=== PATIENT | male | born 1980 | race Asian ===

== ENCOUNTER 2022-01-22 09:00 | Emergency (ER) | payer OTHER, SELFPAY ==
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
[2022-01-22 09:07] VITALS: BP 124/87; PULSE 85; RESP 14; TEMP 36.7; O2SAT 98
[2022-01-22 09:09] VITALS: BP 124/87; BP 138/75; PULSE 85; PULSE 88; RESP 16; TEMP 36.7; O2SAT 98; O2SAT 99
[2022-01-22] MEDS: 0.9 % Sodium Chloride 1,000 ML 999 ML IV (09:44)
[2022-01-22 09:48] LABS: MANUAL DIFF FLAG NO
[2022-01-22 09:49] LABS: Basophils Percent Auto 0.8 % (0-2); Eosinophils Absolute Auto 0.2 X10*3/uL (0.0-0.4); Eosinophils Percent Auto 4.8 % (0-4); Hematocrit 38.4 % (42.0-52.0); Hemoglobin 13.3 g/dl (14.0-18.0); Imm Gran Abs Auto 0.02 X10*3/uL (0.00-0.03); Imm Gran Pct Auto 0.5 % (0.0-0.4); Lymphocytes Absolute Auto 1.6 X10*3/uL (1.2-4.9); Lymphocytes Percent Auto 42.9 % (20-40); Mean Corpuscular HGB Conc 34.6 g/dl (31.0-36.0); Mean Corpuscular Hemoglobin 36.1 pg (27.0-33.0); Mean Corpuscular Volume 104.3 fL (80.0-98.0); Mean Platelet Volume 9.4 fL (9.4-12.4); Monocytes Absolute Auto 0.3 X10*3/uL (0.1-1.2); Monocytes Percent Auto 7.8 % (2-11); Neutrophils Absolute Auto 1.6 x10*3/uL (2.0-8.3); Neutrophils Percent Auto 43.2 % (45-73); Platelet Count 174 X10*3/uL (160-400); Red Blood Count 3.68 X10*6/uL (4.60-5.80); Red Cell Distribution Width 12.2 % (11.0-16.0); White Blood Count 3.7 X10*3/uL (4.8-10.8)
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
[2022-01-22 10:06] LABS: Alanine Aminotransferase 13 U/L (0-40); Albumin Level 4.1 g/dL (3.5-5.0); Alkaline Phosphatase 37 U/L (39-117); Anion Gap 13 (12-20); Aspartate Amino Transferase 22 U/L (5-37); Bilirubin Direct 0.2 mg/dL (0.0-0.5); Bilirubin Total 0.4 mg/dL (0.0-1.0); Blood Urea Nitrogen 14 mg/dL (9-16); Calcium 8.9 mg/dL (8.4-10.2); Carbon Dioxide 24 mmol/L (22-29); Chloride 108 mmol/L (96-108); Creatinine Clr Calc Pharmacy 83.3; Estimated Glomerular Filt Rate > 60; Glucose Random 97 mg/dL (60-115); Lipase 28 U/L (8-78); Potassium 4.1 mmol/L (3.3-5.1); Sodium 141 mmol/L (135-145); Total Protein 6.6 g/dL (6.5-8.0)
[2022-01-22] MEDS: iohexoL 350 MG/ML 100 ML INFUS..BTL 85 ML IV (10:56)
[2022-01-22 12:08] VITALS: BP 124/79; PULSE 77; RESP 17; TEMP 36.9; O2SAT 99
== END 2022-01-22 12:11 | disposition home or self-care (01) ==
PROVIDERS: Physician Assistant; Emergency Provider Emergency Medicine
DX: R07.89 Other chest pain (principal); M54.50 Low back pain, unspecified
CPT/HCPCS: 36415; 70450; 71260; 72125; 74177; 80048; 80076; 83690; 83735; 85025; 96360; 99284; Q9967

== ENCOUNTER 2022-02-07 15:13 | Emergency (ER) | payer OTHER, SELFPAY ==
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
[2022-02-07 16:12] VITALS: BP 119/84; PULSE 69; RESP 16; TEMP 37; O2SAT 99
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
== END 2022-02-07 20:14 | disposition home or self-care (01) ==
PROVIDERS: Emergency Provider Emergency Medicine; PCP Internal Medicine
DX: M54.16 Radiculopathy, lumbar region (principal)
CPT/HCPCS: 72100; 99283

== ENCOUNTER 2025-03-13 21:49 | Inpatient (IN) | payer SELFPAY ==
--- NOTE | 2025-03-13 | ECG_ITS ---
Test Reason : TACHY Blood Pressure : */* mmHG Vent. Rate : 104 BPM Atrial Rate : 104 BPM P-R Int : 142 ms QRS Dur : 78 ms QT Int : 306 ms P-R-T Axes : 53 18 25 degrees QTcB Int : 402 ms Sinus tachycardia Otherwise normal ECG No previous ECGs available Referred By: Generic ED Physician Electronically Signed By: Jason Blackburn
--- NOTE | ~2025-03-13 | XR_ITS ---
CLINICAL HISTORY: fever 2 view chest x-ray Comparison: None Findings: Right lower lobe infiltrate. Normal size heart. No acute fracture. IMPRESSION: Right lower lobe infiltrate. This document has been electronically signed by: Luis Alberto Garcia MD, PHD on 03/14/2025 03:13:38
[2025-03-13 21:51] VITALS: BP 128/78; PULSE 118; O2SAT 98
[2025-03-13 22:02] VITALS: BP 110/71; PULSE 110; RESP 18; TEMP 39.4; O2SAT 95; BMI 20.4
[2025-03-13 22:51] LABS: Hemoglobin 12.4 g/dl (14.0-18.0); PLT CLUMP 1
[2025-03-13 22:53] LABS: Mean Corpuscular HGB Conc 36.5 g/dl (31.0-36.0); Mean Corpuscular Hemoglobin 36.5 pg (27.0-33.0); Mean Platelet Volume 11.8 fL (9.4-12.4); Red Cell Distribution Width 13.4 % (11.0-16.0)
[2025-03-13 22:59] LABS: COVID-19 Test Negative (Negative); IDNOW Serial# 55D5AD1C
[2025-03-13 23:01] LABS: IDNOW Serial# 6674DD1D; Influenza A Negative (Negative); Influenza B2 Negative (Negative)
[2025-03-13 23:03] LABS: Platelet Count 97 X10*3/uL (160-400); White Blood Count 3.8 X10*3/uL (4.8-10.8)
[2025-03-13 23:06] LABS: Alanine Aminotransferase 436 U/L (0-40); Albumin Level 3.6 g/dL (3.5-5.0); Alkaline Phosphatase 101 U/L (39-117); Anion Gap 13 (12-20); Aspartate Amino Transferase 235 U/L (5-37); Bilirubin Total 0.9 mg/dL (0.0-1.0); Blood Urea Nitrogen 15 mg/dL (9-16); Calcium 8.6 mg/dL (8.4-10.2); Carbon Dioxide 24 mmol/L (22-29); Chloride 96 mmol/L (96-108); Creatinine Clr Calc Pharmacy 58.9; Estimated Glomerular Filt Rate > 60; Ethanol < 10 mg/dL; Glucose Random 116 mg/dL (60-115); Magnesium 2.2 mg/dL (1.6-2.6); Potassium 3.9 mmol/L (3.3-5.1); Sodium 129 mmol/L (135-145); Total Protein 6.9 g/dL (6.5-8.0)
--- NOTE | 2025-03-13 23:14 | ED.GENADULT ---
HPI - General Adult General Chief complaint: General Medical Stated complaint: fell, headaches dizzy, chills, back pain Time Seen by Provider: 03/13/25 23:14 History of Present Illness ED Provider: Penelope HERNANDEZ narrative: The patient is a 44-year-old male. He says that he normally drinks 3 beers per day. He stopped drinking 1 week ago. His last drink was last Friday. Five days ago he felt quite weak as he was going [place] stairs [place]. He fell because he felt weak. He was caught by some people who were behind him and he did not get injured. Couple of days later he started to feel feverish. He finally came to the emergency department today. His fiancee encouraged him to come. He has been feeling very tired. He has been eating poorly. He has been feeling unable to eat. He has been having some right lower back pain. Today he felt very weak trying to get up from a chair and at that point his fiancee convinced him to come to the emergency room. He thinks he has had a fever for about 3 or 4 days. He has a bit of a headache. He has some right-sided neck pain. He has not had any significant cough. No significant abdominal pain. No nausea or vomiting. Related Data Previous Rx's ?Medication ?Instructions ?Recorded acetaminophen 500 mg tablet 500 mg PO Q6H PRN pain or fever 01/22/22 (Tylenol Extra Strength) #14 tabs cyclobenzaprine 5 mg tablet 5 mg PO Q8H PRN pain (scale score 01/22/22 7-10) 5 days #14 tabs lidocaine 5 % topical patch 1 patch topical DAILY PRN pain #30 01/22/22 (Lidoderm) ea naproxen 500 mg tablet 500 mg PO BID PRN pain 7 days #20 01/22/22 tabs cyclobenzaprine 10 mg tablet 10 mg PO TID PRN muscle spasm 7 02/07/22 days #21 tabs naproxen 500 mg tablet 500 mg PO BID PRN pain 10 days #20 02/07/22 tabs Allergies Allergy/AdvReac Type Severity Reaction Status Date / Time No Known Allergies Allergy Verified 03/13/25 22:11 Review of Systems Review of Systems: Yes all other systems are reviewed and are negative [facility] Past Medical History Medical History No known health problems Social History Social History Alcohol intake: current Alcohol intake frequency: does not drink Patient Tobacco Use Status: Never used Tobacco Smoked in Last 30 Days: Yes Use of substances other than those prescribed or required for medical reasons: No Advance Directives: No Advance Directives Information Provided: No Physical Exam ED Vital Signs: Vital Signs - 24 hr 03/13/25 22:02 03/13/25 23:16 03/13/25 23:53 Temperature 103.0 F H 103.3 F H Pulse Rate 110 H 98 98 Respiratory Rate 18 19 33 H Blood Pressure 110/71 108/72 99/64 Pulse Oximetry 95 98 95 Oxygen Delivery Method Room Air Room Air Room Air 03/14/25 00:17 03/14/25 00:56 03/14/25 02:03 Temperature 99.2 F Pulse Rate 84 81 73 Respiratory Rate 24 H 20 21 H Blood Pressure 104/64 96/57 L 96/59 L Pulse Oximetry 96 95 97 Oxygen Delivery Method Room Air Room Air Room Air BMI result Body Mass Index 20.4 Const Other: The patient is a slim man who was awake and alert. He looks mildly unwell but not acutely ill or in distress. HENMT Other: Face is symmetrical, mucous membranes moist, the posterior pharynx is normal. Eyes General: appearance normal, both eyes and all related structures Neck Other: No discrete adenopathy is appreciated. He has some tenderness in the right side of the neck but there did not seem to be any masses associated with this tenderness. Seems to be able to move his neck normally. Resp Other: No increased work of breathing. Crackles at the right base. Cardio Other: No murmur heard Rate: regular rate Rhythm: regular rhythm Heart sounds: S1 normal heart sound present and S2 normal heart sound present GI Other: The abdomen is flat, soft, nontender Skin Other: Skin is dry and unremarkable Neuro Other: The patient is awake and alert. He seems tired but has a normal mental status. Cranial nerves 2-12 are intact. He moves his extremities symmetrically and appropriately. He seems grossly neurologically intact. Extrem Other: No peripheral edema. No calf swelling or tenderness. Medications Administered Discontinued Medications Generic Name Dose Route Start Last Admin Trade Name Freq PRN Reason Stop Dose Admin Acetaminophen 975 mg 03/13/25 23:13 03/13/25 23:16 Acetaminophen 325 Mg Tablet PO 03/13/25 23:14 975 mg ONCE ONE Administration Sodium Chloride 1,000 mls @ 999 mls/hr 03/13/25 23:45 03/14/25 00:53 Ns IV 03/14/25 00:45 Infused .Q1H1M DAVID Infusion Sodium Chloride 1,000 mls @ 999 mls/hr 03/13/25 23:45 03/14/25 02:03 Ns IV 03/14/25 00:45 Infused .Q1H1M DAVID Infusion Piperacillin Sod/Tazobactam 100 mls @ 200 mls/hr 03/13/25 23:50 03/14/25 00:53 Sod 4.5 gm/ Sodium Chloride IV 03/14/25 00:19 Infused ONCE ONE Infusion Vancomycin HCl 1,250 mg/ 250 mls @ 166.667 mls/hr 03/13/25 23:50 03/14/25 02:42 Sodium Chloride IV 03/14/25 01:19 Infused ONCE ONE Infusion Sodium Chloride 1,000 mls @ 999 mls/hr 03/14/25 01:45 03/14/25 03:06 Ns IV 03/14/25 02:45 Infused .Q1H1M DAVID Infusion Medical Decision Making Medical Decision Making [facility] Narrative: The patient is a 44-year-old male who does not have a history of significant past medical illness but who is a fairly regular drinker who recently stopped drinking alcohol. He has been weak and dizzy for several days. He has a fever 103 here. On his lung exam he has crackles at the right base. His physical exam is otherwise fairly unremarkable. Surprisingly he does not have a cough. His chest x-ray shows a fairly large right lower lobe pneumonia. His total white count is slightly low at 3.8 but he is 22% bands. Additionally he has a very high CRP of almost 25. He has some transaminitis as well. Although his lactate is normal at 0.8 I think he is fairly ill. He was started on broad-spectrum antibiotics with Zosyn and vancomycin. He was given several L of IV fluids. His blood pressures were not frankly hypotensive but were somewhat soft. I think he should be hospitalized for additional care. Lab Data 03/13/25 22:34 03/13/25 22:34 Labs: Lab Results 03/13/25 03/13/25 03/13/25 Range/Units 22:34 23:43 23:53 WBC 3.8 L (4.8-10.8) X10*3/uL RBC 3.40 L (4.60-5.80) X10*6/uL Hgb 12.4 L (14.0-18.0) g/dl Hct 34.0 L (42.0-52.0) % MCV 100.0 H (80.0-98.0) fL MCH 36.5 H (27.0-33.0) pg MCHC 36.5 H (31.0-36.0) g/dl RDW 13.4 (11.0-16.0) % Plt Count 97 L D (160-400) X10*3/uL MPV 11.8 (9.4-12.4) fL Immature Gran % (Auto) Cancelled Neut % (Auto) Cancelled Lymph % (Auto) Cancelled [place] % (Auto) Cancelled Eos % (Auto) Cancelled Baso % (Auto) Cancelled Lymph # (Auto) Cancelled [place] # (Auto) Cancelled Eos # (Auto) Cancelled Baso # (Auto) Cancelled Abs Immat Gran (auto) Cancelled Absolute Neuts (auto) Cancelled Absolute Nucleated RBC 0.000 (0.0-0.012) X10*3/uL Nucleated RBC % (auto) 0.0 (0.0-0.2) /100WBC Neutrophils % (Manual) 47 (45-73) % Band Neutrophils % 22 H (3-5) % Lymphocytes % (Manual) 25 (20-40) % Monocytes % (Manual) 5 (2-11) % Metamyelocytes % 1 % Abs Neuts (Manual) 2.6 (2.0-8.3) X10*3/uL Lymphocytes # (Manual) 1.0 L (1.2-4.9) X10*3/uL Monocytes # (Manual) 0.2 (0.1-1.2) X10*3/uL Toxic Vacuolation PRESENT Dohle Bodies PRESENT Platelet Estimate DECREASED (NORMAL) Plt Morphology Comment NORMAL RBC Morphology NORMAL Sodium 129 L (135-145) mmol/L Potassium 3.9 (3.3-5.1) mmol/L Chloride 96 (96-108) mmol/L Carbon Dioxide 24 (22-29) mmol/L Anion Gap 13 (12-20) BUN 15 (9-16) mg/dL Creatinine 1.12 (0.5-1.4) mg/dL Estim Creat Clear Calc 58.9 Estimated GFR > 60 Random Glucose 116 H (60-115) mg/dL Lactic Acid 0.8 (0.5-2.0) mmol/L Calcium 8.6 (8.4-10.2) mg/dL Magnesium 2.2 (1.6-2.6) mg/dL Total Bilirubin 0.9 (0.0-1.0) mg/dL AST 235 H (5-37) U/L ALT 436 H (0-40) U/L Alkaline Phosphatase 101 (39-117) U/L C-Reactive Protein 24.96 H (< or = 0.50) mg/dL Total Protein 6.9 (6.5-8.0) g/dL Albumin 3.6 (3.5-5.0) g/dL Urine Color Yellow Urine Appearance Clear Urine pH 6.0 (5.0-9.0) Ur Specific [place] 1.010 (1.005-1.025) Urine Protein 100 (2+) H (Neg-Trace) mg/dL Urine Glucose (UA) Negative (Negative) mg/dL Urine Ketones Trace (Negative) mg/dL Urine Blood Moderate (2+) H (Negative) Urine Nitrite Negative (Negative) Ur Leukocyte Esterase Negative (Negative) Urine RBC 3-5 H (0-2) /HPF Urine WBC 0-5 (0-5) /HPF Ur Squamous Epith Cells 0-2 (0-2) /HPF Urine Bacteria None Seen (None Seen) Hyaline Casts 0-2 (0-2) /LPF Urine Opiates Screen Not Detected (Not Detect) Ur Buprenorphine Scrn Not Detected (Not Detect) ng/mL Ur Oxycodone Screen Not Detected (Not Detect) ng/mL Urine Methadone Screen Not Detected (Not Detect) ng/mL Urine Fentanyl Screen Not Detected (Not Detect) Ur Barbiturates Screen Not Detected (Not Detect) Ur Phencyclidine Scrn Not Detected (Not Detect) Ur Amphetamines Screen Not Detected (Not Detect) U Benzodiazepines Scrn Not Detected (Not Detect) Urine Cocaine Screen Not Detected (Not Detect) U Marijuana (THC) Screen Not Detected (Not Detect) Ethyl Alcohol < 10 mg/dL COVID-19 (MISTI) Negative (Negative) COVID-19 Clin Com See Note Influenza Type A (NEEL) Negative (Negative) Influenza Type B (NEEL) Negative (Negative) Influenza A & B Note See Note Critical Care Time Critical Care Time Critical Care Time: Yes Total Critical Care Time: 35 Attestation: The patient was critically ill with a high probability of imminent or life-threatening deterioration. ?I spent greater than 30 minutes of discontinuous time evaluating the patient, delivering critical care at the bedside, discussing evaluating data with consultants. ?Critical care time does not include time spent performing separately billable procedures or teaching. ?Time spent performing critical care with 35 minutes. Discharge Plan Discharge Clinical Impression: Right lower lobe pneumonia Patient Disposition: Admitted As Inpatient
[2025-03-13 23:16] VITALS: BP 108/72; PULSE 98; RESP 19; TEMP 39.6; O2SAT 98
[2025-03-13] MEDS: Acetaminophen 325 MG TABLET 975 MG PO (23:16)
[2025-03-13 23:39] LABS: C Reactive Protein 24.96 mg/dL (< or = 0.50)
[2025-03-13] MEDS: 0.9 % Sodium Chloride 1,000 ML 999 ML IV (23:45)
[2025-03-13 23:53] VITALS: BP 99/64; PULSE 98; RESP 33; O2SAT 95
[2025-03-13 23:53] LABS: Neutrophils Percent Manual 47 % (45-73)
[2025-03-13 23:54] LABS: Band Neutrophils Percent 22 % (3-5); Lymphocytes Percent Manual 25 % (20-40); Metamyelocytes Percent 1 %; Monocytes Absolute Manual 0.2 X10*3/uL (0.1-1.2); Monocytes Percent Manual 5 % (2-11); Neutrophils Absolute Manual 2.6 X10*3/uL (2.0-8.3)
[2025-03-13 23:57] LABS: Dohle Bodies PRESENT; Platelet Estimate DECREASED (NORMAL); Platelet Morphology Comment NORMAL; RBC Morphology NORMAL; Toxic Vacuolation PRESENT
[2025-03-14] VITALS (15 sets, daily range): BP systolic 96–112; BP diastolic 57–73; PULSE 68–107; RESP 12–30; TEMP 36.1–38.8; O2SAT 94–97
[2025-03-14 00:02] LABS: Appearance Urine Clear; Color Urine Yellow; Glucose Urine UA Negative (Negative); Leukocyte Esterase Urine Negative (Negative); Nitrite Urine Negative (Negative); UMIC TRIGGER UACC YES; Urine Blood Moderate (2+) (Negative); Urine Ketones Trace mg/dL (Negative); Urine Protein 100 (2+) mg/dL (Neg-Trace)
[2025-03-14 00:09] LABS: Lactic Acid 0.8 mmol/L (0.5-2.0)
[2025-03-14 00:10] LABS: Amphetamine Screen Urine Not Detected (Not Detect); Barbiturates, Urine Not Detected (Not Detect); Benzodiazepines Screen Urine Not Detected (Not Detect); Buprenorphine Scr Not Detected (Not Detect); Cannabinoid Screen Urine Not Detected (Not Detect); Cocaine Screen Urine Not Detected (Not Detect); Fentanyl, urine Not Detected (Not Detect); Methadone Screen, Urine Not Detected (Not Detect); Opiate Screen Urine Not Detected (Not Detect); Oxycodone Screen Urine Not Detected (Not Detect); Phencyclidine Screen Urine Not Detected (Not Detect)
[2025-03-14 00:12] LABS: Bacteria Urine None Seen (None Seen); Hyaline Casts Urine 0-2 /LPF (0-2); Squamous Epithelial Cell Urine 0-2 /HPF (0-2); WBC Urine 0-5 /HPF (0-5)
[2025-03-14] MEDS: Piperacillin Sodium/Tazobactam 4.5 GM in 0.9 % Sodium Chloride 100 ML IV (00:16)
[2025-03-14] MEDS: 0.9 % Sodium Chloride 1,000 ML 999 ML IV ×2 (00:17→02:03)
[2025-03-14] MEDS: vancomycin HCL 1,250 MG in 0.9 % Sodium Chloride 250 ML 166.67 MG IV (00:52)
--- NOTE | 2025-03-14 05:46 | P.HPHOSP_ITS ---
History of Present Illness Date of Service: 03/14/25 Attending physician on admission: Anibal Pappas Chief Complaint: weakness Patient is a 44-year-old male with a past medical history significant for alcohol use disorder, who presented to the ED due to feeling unwell for the past week with weakness and a headache and mild intermittent nonproductive cough. The patient reports an episode of near-syncope when walking upstairs but did not fall or lose consciousness. He has had a fever for the past 3-4 days. The patient is a poor historian. He denies any abdominal pain, chest pain, shortness of breath or urinary symptoms. Review of Systems 2 Constitutional: Constitutional: Denies chills, Reports fatigue, Reports fever(s) and Reports headache(s) Eyes: Eyes: Denies change in vision and Denies photophobia ENT: Reports headache(s), Denies nasal congestion, Denies nasal discharge and Denies sore throat Cardiovascular: Cardiovascular: Denies chest pain, Denies syncope, Denies rapid heart rate, Denies leg edema and Denies dyspnea Respiratory: Respiratory: Denies chest congestion, Reports cough, Denies dyspnea and Denies wheezing Gastrointestinal: Gastrointestinal: Denies abdominal pain, Denies diarrhea, Denies nausea and Denies vomiting Genitourinary: Genitourinary: Denies dysuria, Denies urinary frequency and Denies urinary urgency Musculoskeletal: Musculoskeletal: Denies back pain Integumentary/Breasts: Skin/Breast: Denies rash Neurologic: Denies confusion, Denies syncope and Reports headache(s) Psychiatric: Psychiatric: Denies confusion Endocrine: Endocrine: Reports fatigue Hematologic/Lymphatic: Hematologic/Lymphatic: Denies easy bleeding and Denies easy bruising Allergic/Immunologic: Allergic/Immunologic: Denies wheezing [facility] Medical History (Updated 03/14/25 @ 06:30 by Samara Vega PA-C) Alcohol use disorder No known health problems Functional capacity: independent ambulation Social History Alcohol intake: current Alcohol intake frequency: does not drink Patient Tobacco Use Status: Never used Tobacco Smoked in Last 30 Days: Yes Use of substances other than those prescribed or required for medical reasons: No Advance Directives: No Advance Directives Information Provided: No Narrative: no smoking, was drinking 3 beers/day, stopped 1 week ago. no drug use Meds Allergies Allergy/AdvReac Type Severity Reaction Status Date / Time No Known Allergies Allergy Verified 03/13/25 22:11 Active Medications: Current Medications Pharmacy Consult (Consult Rx Vancomycin Dosing) 1 each MISCELLANE DAILY PRN PRN Reason: Consult order Physical Exam 2 Vital Signs and Narrative: Vital Signs: Last Vital Signs Temp 97.0 F 03/14/25 03:18 Pulse 68 03/14/25 03:18 Resp 17 03/14/25 03:18 BP 101/62 03/14/25 03:18 Pulse Ox 97 03/14/25 03:18 O2 Del Method Room Air 03/14/25 03:18 BMI result Body Mass Index 20.4 General: AOx3, no acute distress Resp: crackles RLL, no wheezing CVS: S1, S2, RRR GI: +BS, NT, no distention Skin: Warm, dry Neuro: Cranial nerves II-XII grossly intact bilaterally. Motor grossly intact bilaterally Extremities: No LE edema Psych: Appropriate affect Const: General: No confusion Orientation/consciousness: No confusion Eyes: Direct Ophthalmoscopy: No photophobia Neuro: General: No confusion Results Labs 03/13/25 22:34 03/13/25 22:34 Labs: Laboratory Results - last 24 hr 03/13/25 03/13/25 03/13/25 22:34 23:43 23:53 MCV 100.0 H MCH 36.5 H MCHC 36.5 H RDW 13.4 Plt Count 97 L D MPV 11.8 Immature Gran % (Auto) Cancelled Neut % (Auto) Cancelled Lymph % (Auto) Cancelled [place] % (Auto) Cancelled Eos % (Auto) Cancelled Baso % (Auto) Cancelled Lymph # (Auto) Cancelled [place] # (Auto) Cancelled Eos # (Auto) Cancelled Baso # (Auto) Cancelled Abs Immat Gran (auto) Cancelled Absolute Neuts (auto) Cancelled Absolute Nucleated RBC 0.000 Nucleated RBC % (auto) 0.0 Neutrophils % (Manual) 47 Band Neutrophils % 22 H Lymphocytes % (Manual) 25 Monocytes % (Manual) 5 Metamyelocytes % 1 Abs Neuts (Manual) 2.6 Lymphocytes # (Manual) 1.0 L Monocytes # (Manual) 0.2 Toxic Vacuolation PRESENT Dohle Bodies PRESENT Platelet Estimate DECREASED Plt Morphology Comment NORMAL RBC Morphology NORMAL Anion Gap 13 Estim Creat Clear Calc 58.9 Estimated GFR > 60 Random Glucose 116 H Lactic Acid 0.8 Calcium 8.6 Magnesium 2.2 Total Bilirubin 0.9 AST 235 H ALT 436 H Alkaline Phosphatase 101 C-Reactive Protein 24.96 H Total Protein 6.9 Albumin 3.6 Urine Color Yellow Urine Appearance Clear Urine pH 6.0 Ur Specific [place] 1.010 Urine Protein 100 (2+) H Urine Glucose (UA) Negative Urine Ketones Trace Urine Blood Moderate (2+) H Urine Nitrite Negative Ur Leukocyte Esterase Negative Urine RBC 3-5 H Urine WBC 0-5 Ur Squamous Epith Cells 0-2 Urine Bacteria None Seen Hyaline Casts 0-2 Urine Opiates Screen Not Detected Ur Buprenorphine Scrn Not Detected Ur Oxycodone Screen Not Detected Urine Methadone Screen Not Detected Urine Fentanyl Screen Not Detected Ur Barbiturates Screen Not Detected Ur Phencyclidine Scrn Not Detected Ur Amphetamines Screen Not Detected U Benzodiazepines Scrn Not Detected Urine Cocaine Screen Not Detected U Marijuana (THC) Screen Not Detected Ethyl Alcohol < 10 COVID-19 (MISTI) Negative COVID-19 Clin Com See Note Influenza Type A (NEEL) Negative Influenza Type B (NEEL) Negative Influenza A & B Note See Note Assessment and Plan (1) Sepsis: Status: Acute (2) Right lower lobe pneumonia: Status: Acute (3) Anemia: Status: Acute (4) Thrombocytopenia: Status: Acute (5) Hyponatremia: Status: Acute (6) Elevated LFTs: Status: Acute (7) Alcohol use disorder: Status: Acute Plan Patient is a 44-year-old male with a past medical history significant for alcohol use disorder, who presented to the ED due to feeling unwell for the past week with weakness and a headache and mild intermittent nonproductive cough. Sepsis secondary to right lower lobe pneumonia - WBC 3.8, febrile, tachycardic and tachypneic, lactic acid normal - chest x-ray with right lower lobe infiltrate - EKG with sinus tachycardia - given 3 L IV fluids in ED, BP soft but maintaining - started on vancomycin and Zosyn in ED, switch to ceftriaxone and azithromycin for community-acquired pneumonia - monitor CBC and BMP Macrocytic anemia and thrombocytopenia -- likely secondary to alcohol use - hemoglobin 12.4, hematocrit 34.0, MCV 100.0 - platelets 97 - check B12, iron and folate - monitor CBC Acute hyponatremia, likely hypovolemic - likely secondary to poor p.o. intake due to weakness - sodium 129 - received 3 L NS in ED - monitor BMP Alcohol use disorder/elevated LFTs - AST 235, ALT 436 - no abdominal pain - elevated LFTs likely secondary to alcohol use disorder - monitor CIWA - follow-up outpatient for further evaluation of elevated LFTs Full code VTE prophylaxis: Pneumoboots due to thrombocytopenia Patient with sepsis secondary to right lower lobe pneumonia, requiring admission for at least 2 midnights stay for IV antibiotics and monitoring. Quality Stroke Does the patient have a stroke diagnosis?: No VTE Prior VTE?: No VTE Risk Level:: Medical - moderate - high VTE Device Contraindication: N/A - Device Ordered VTE Drug Contraindication: Treatment Not Indicated
[2025-03-14] MEDS: Azithromycin 500 MG in 0.9 % Sodium Chloride 250 ML 125 MG IV (08:09)
--- NOTE | 2025-03-14 08:11 | PC.NURSE ---
Pt A&O X4 VSS NAD states no pain at this time, eating bkfst.
--- NOTE | 2025-03-14 08:43 | PHA.MEDREC ---
Addendum entered by Libra Pleitez RPh 03/14/25 08:48: MED REC REVIEWED BY [facility] Original Note: Pharmacy Consult ? Medication Reconciliation Pharmacy has completed the medication reconciliation. Spoke with pt and he confirmed he is not taking any medications at this time.
[2025-03-14] MEDS: Thiamine HCL 100 MG TABLET PO (08:46)
[2025-03-14] MEDS: cefTRIAXone sodium 2 GM VIAL IVPUSH (08:46)
[2025-03-14] MEDS: 0.9 % Sodium Chloride Flush 3 ML SYRINGE IVFLUSH ×2 (08:52→20:02)
[2025-03-14 09:02] LABS: Hemoglobin 11.8 g/dl (14.0-18.0); Mean Corpuscular HGB Conc 35.8 g/dl (31.0-36.0); Mean Corpuscular Hemoglobin 36.4 pg (27.0-33.0); Mean Corpuscular Volume 101.9 fL (80.0-98.0); Mean Platelet Volume 11.6 fL (9.4-12.4); Platelet Count 103 X10*3/uL (160-400); Red Blood Count 3.24 X10*6/uL (4.60-5.80); Red Cell Distribution Width 13.5 % (11.0-16.0); White Blood Count 3.4 X10*3/uL (4.8-10.8)
[2025-03-14 09:18] LABS: Anion Gap 10 (12-20); Blood Urea Nitrogen 12 mg/dL (9-16); Calcium 7.7 mg/dL (8.4-10.2); Carbon Dioxide 22 mmol/L (22-29); Chloride 109 mmol/L (96-108); Creatinine Clr Calc Pharmacy 70.2; Estimated Glomerular Filt Rate > 60; Glucose Random 119 mg/dL (60-115); Iron 26 mcg/dL (45-160); Percent Iron Saturation 23 % (15-50); Potassium 3.2 mmol/L (3.3-5.1); Sodium 138 mmol/L (135-145); Total Iron Binding Capacity 113 mcg/dL (228-428); Unsaturated Iron Binding 87 ug/dL
[2025-03-14] MEDS: Acetaminophen 325 MG TABLET 975 MG PO ×2 (09:20→19:58)
[2025-03-14 09:27] LABS: Band Neutrophils Percent 10 % (3-5); Lymphocytes Absolute Manual 0.6 X10*3/uL (1.2-4.9); Lymphocytes Percent Manual 17 % (20-40); Metamyelocytes Percent 1 %; Myelocytes Percent 1 %; Neutrophils Absolute Manual 2.8 X10*3/uL (2.0-8.3); Neutrophils Percent Manual 71 % (45-73)
--- NOTE | 2025-03-14 09:27 | PC.NURSE ---
Pt SOB when ambulating to BR- Tylenol just administered for fever. Pt remains with stable O2 Sat. Resting at this time.
[2025-03-14 09:31] LABS: RBC Morphology NOTED
[2025-03-14 09:32] LABS: Burr Cells 1+ (0-2) /OIF; Dohle Bodies PRESENT; Macrocytosis 1+ (5-14) /OIF; Platelet Estimate DECREASED (NORMAL); Platelet Morphology Comment NORMAL
--- NOTE | 2025-03-14 09:41 | P.EN_ITS ---
Event Note Date of Service: 03/14/25 Event Note: 44-year-old male with a past medical history significant for alcohol use disorder, who presented to the ED due to feeling unwell for the past week with weakness and a headache and mild intermittent nonproductive cough. Sepsis secondary to right lower lobe pneumonia WBC 3.8, febrile, tachycardic and tachypneic, lactic acid normal chest x-ray with right lower lobe infiltrate EKG with sinus tachycardia given 3 L IV fluids in ED, BP soft but maintaining started on vancomycin and Zosyn in ED, switch to ceftriaxone and azithromycin for community-acquired pneumonia monitor CBC and BMP Hyponatremia Replete Macrocytic anemia and thrombocytopenia likely secondary to alcohol use hemoglobin 12.4, hematocrit 34.0, MCV 100.0 platelets 97 check B12, iron 26 and folate monitor CBC Acute hyponatremia, likely hypovolemic. Resolved likely secondary to poor p.o. intake due to weakness sodium 129, 138 received 3 L NS in ED monitor BMP Alcohol use disorder/elevated LFTs AST 235, ALT 436 no abdominal pain elevated LFTs likely secondary to alcohol use disorder monitor [facility] follow-up outpatient for further evaluation of elevated LFTs Full code VTE prophylaxis: Pneumoboots due to thrombocytopenia Patient with sepsis secondary to right lower lobe pneumonia, requiring admission for at least 2 midnights stay for IV antibiotics and monitoring. Time Spent With Patient Time: Total time managing care of this patient today ____ minutes.
--- NOTE | 2025-03-14 09:46 | MHC.CM.PN ---
Pt is independent, does not use home health services. His PCP is Dr. Perales, and he is working on getting health insurance. He can arrange a ride home at [place], DCP: home, self care. CM to follow for [place] needs.
[2025-03-14 09:54] LABS: Folate 10.2 ng/mL (> or = 4.0); Vitamin B12 > 2000 pg/mL (200-900)
[2025-03-14] MEDS: Potassium Chloride ER 20 MEQ TAB.ER.PRT 40 MEQ PO (10:21)
--- NOTE | 2025-03-14 14:30 | PC.NURSE ---
Pt remains A&O X4 VSS. NAD ate lunch and is visiting with family.
--- NOTE | 2025-03-14 17:33 | PC.NURSE ---
Per Pt, Lindsey Vallejo okay to receive information about pt care.
[2025-03-15 04:00] VITALS: BP 129/70; PULSE 107; RESP 18; TEMP 37.7; O2SAT 92
[2025-03-15 06:26] LABS: Hematocrit 33.3 % (42.0-52.0); Hemoglobin 11.9 g/dl (14.0-18.0); Mean Corpuscular HGB Conc 35.7 g/dl (31.0-36.0); Mean Corpuscular Hemoglobin 36.4 pg (27.0-33.0); Mean Corpuscular Volume 101.8 fL (80.0-98.0); Platelet Count 104 X10*3/uL (160-400); Red Blood Count 3.27 X10*6/uL (4.60-5.80); Red Cell Distribution Width 13.7 % (11.0-16.0); White Blood Count 3.7 X10*3/uL (4.8-10.8)
[2025-03-15 06:42] LABS: Anion Gap 13 (12-20); Blood Urea Nitrogen 9 mg/dL (9-16); Calcium 8.1 mg/dL (8.4-10.2); Carbon Dioxide 21 mmol/L (22-29); Chloride 105 mmol/L (96-108); Creatinine Clr Calc Pharmacy 82.5; Estimated Glomerular Filt Rate > 60; Glucose Random 100 mg/dL (60-115); Potassium 3.5 mmol/L (3.3-5.1); Sodium 135 mmol/L (135-145)
[2025-03-15] MEDS: Azithromycin 500 MG in 0.9 % Sodium Chloride 250 ML 125 MG IV (06:50)
[2025-03-15 06:58] VITALS: BP 112/62; PULSE 96; RESP 16; TEMP 37.3; O2SAT 93
[2025-03-15 07:34] LABS: Atypical Lymphs Percent Manual 1 % (0-6); Band Neutrophils Percent 14 % (3-5); Lymphocytes Absolute Manual 0.4 X10*3/uL (1.2-4.9); Lymphocytes Percent Manual 12 % (20-40); Monocytes Absolute Manual 0.1 X10*3/uL (0.1-1.2); Monocytes Percent Manual 4 % (2-11); Neutrophils Absolute Manual 3.1 X10*3/uL (2.0-8.3); Neutrophils Percent Manual 69 % (45-73)
[2025-03-15 07:38] LABS: RBC Morphology NOTED
[2025-03-15 07:39] LABS: Burr Cells 1+ (0-2) /OIF; Dohle Bodies PRESENT; Platelet Estimate DECREASED (NORMAL); Platelet Morphology Comment NORMAL; Tear Drop Cells 1+ (0-2) /OIF; Toxic Vacuolation PRESENT
--- NOTE | 2025-03-15 08:48 | PM.DS ---
DS: Providers Provider Date of Service: 03/15/25 Date of admission: 03/14/25 03:17 Date of discharge: 03/15/25 Primary care physician: Lupe Perales MD DS: Diagnosis Discharge Diagnosis (1) Sepsis: Status: Acute (2) Right lower lobe pneumonia: Status: Acute (3) Anemia: Status: Acute (4) Thrombocytopenia: Status: Acute (5) Hyponatremia: Status: Acute (6) Elevated LFTs: Status: Acute (7) Alcohol use disorder: Status: Acute DS: Summary Hospital Course Hospital Course: History and physical as per admitting provider. Patient is a 44-year-old male with a past medical history significant for alcohol use disorder, who presented to the ED due to feeling unwell for the past week with weakness and a headache and mild intermittent nonproductive cough. The patient reports an episode of near-syncope when walking upstairs but did not fall or lose consciousness. He has had a fever for the past 3-4 days. The patient is a poor historian. He denies any abdominal pain, chest pain, shortness of breath or urinary symptoms. 44-year-old man treated for sepsis secondary to right lower lobe pneumonia, chest x-ray showed right lower lobe infiltrate, patient treated with vancomycin and Zosyn, switch ceftriaxone and azithromycin for community-acquired pneumonia coverage. At this point patient is off oxygen on room air, doing well without shortness of breath. Plan will be to continue a total of 5 more days of antibiotics. Hyponatremia. Likely hypovolemic, poor p.o. intake . Resolved Microcytic anemia and thrombocytopenia secondary to alcohol use. Stable H&H Alcohol use disorder with transaminitis. No abdominal pain, no withdrawals during hospitalization Time Attestation Discharge Coordination Time (in mins): 42 Quality: Safe Use of Opioids Does Pt have an Active Cancer Diagnosis on the Problem List?: No Quality: Stroke Does the patient have a stroke diagnosis?: No Physical Exam Vital Signs: Vital Signs: Last Vital Signs Temp 99.1 F 03/15/25 06:58 Pulse 96 03/15/25 06:58 Resp 16 03/15/25 06:58 BP 112/62 03/15/25 06:58 Pulse Ox 93 03/15/25 06:58 O2 Del Method Room Air 03/15/25 06:58 BMI result Body Mass Index 20.4 Appearing in no acute distress head is normocephalic atraumatic eyes pupils are PERRLA sclera is anicteric mouth throat mucous membranes are intact and moist neck is supple no lymphadenopathy, no JVD noted lung sounds are clear to auscultation heart regular rate rhythm, clear S1, S2 positive bowel sounds, abdomen is soft, nontender neuro patient is alert x3, no focal deficits DS: Data Data Completed and Pending Labs on day of discharge: Laboratory Results - last 24 hr 03/14/25 03/14/25 03/15/25 08:55 08:56 05:43 WBC 3.4 L 3.7 L RBC 3.24 L 3.27 L Hgb 11.8 L 11.9 L Hct 33.0 L 33.3 L MCV 101.9 H 101.8 H MCH 36.4 H 36.4 H MCHC 35.8 35.7 RDW 13.5 13.7 Plt Count 103 L 104 L MPV 11.6 12.0 Immature Gran % (Auto) Cancelled Cancelled Neut % (Auto) Cancelled Cancelled Lymph % (Auto) Cancelled Cancelled Waller % (Auto) Cancelled Cancelled Eos % (Auto) Cancelled Cancelled Baso % (Auto) Cancelled Cancelled Lymph # (Auto) Cancelled Cancelled Waller # (Auto) Cancelled Cancelled Eos # (Auto) Cancelled Cancelled Baso # (Auto) Cancelled Cancelled Abs Immat Gran (auto) Cancelled Cancelled Absolute Neuts (auto) Cancelled Cancelled Absolute Nucleated RBC 0.000 0.000 Nucleated RBC % (auto) 0.0 0.0 Neutrophils % (Manual) 71 69 Band Neutrophils % 10 H 14 H Lymphocytes % (Manual) 17 L 12 L Atypical Lymphs % (Man) 1 Monocytes % (Manual) 4 Metamyelocytes % 1 Myelocytes % 1 Abs Neuts (Manual) 2.8 3.1 Lymphocytes # (Manual) 0.6 L 0.4 L Monocytes # (Manual) 0.1 Toxic Vacuolation PRESENT Dohle Bodies PRESENT PRESENT Platelet Estimate DECREASED DECREASED Plt Morphology Comment NORMAL NORMAL RBC Morphology NOTED NOTED Macrocytosis 1+ (5-14) Tear Drop Cells 1+ (0-2) Tornado Cells 1+ (0-2) 1+ (0-2) Sodium 138 135 Potassium 3.2 L 3.5 Chloride 109 H 105 Carbon Dioxide 22 21 L Anion Gap 10 L 13 BUN 12 9 Creatinine 0.94 0.80 Estim Creat Clear Calc 70.2 82.5 Estimated GFR > 60 > 60 Random Glucose 119 H 100 Calcium 7.7 L D 8.1 L Iron 26 L TIBC 113 L % Saturation 23 Unsat Iron Binding 87 Vitamin B12 > 2000 H Folate 10.2 Preliminary micro results at discharge 03/13/25 23:56 Blood Culture - Preliminary Blood - Venous No growth after 24 hours. 03/13/25 23:43 Blood Culture - Preliminary Blood - Venous No growth after 24 hours. Discharge Plan Discharge Anticipated Discharge Date/Time: 03/15/25 08:34 Patient Disposition: Home, Self-Care Discharge Diagnosis: Sepsis secondary to right lower lobe pneumonia Hyponatremia Alcohol use disorder Transaminitis Referrals: Lupe Perales MD [Primary Care Provider] - 1 Week Discharge Medications: New cefuroxime axetil 500 mg tablet 500 mg PO BID Qty: 10 0RF azithromycin 500 mg tablet 500 mg PO DAILY 5 Days Qty: 5 0RF Discharge Orders: Discharge Order (Routine); Ordered 03/15/25 Ordered By: Justine Mittal Diet: Advance to usual diet Activity on Discharge: As tolerated Stand Alone Forms: Patient Portal Discharge page Print Language: [place] Care Plan Goals: Complete course of antibiotics Health Concerns: Sepsis secondary to right lower lobe pneumonia Hyponatremia Alcohol use disorder Transaminitis Plan of Treatment: Follow-up with primary care provider as needed Take all medications as prescribed Assessment: See discharge summary
[2025-03-15] MEDS: cefTRIAXone sodium 2 GM VIAL IVPUSH (08:49)
[2025-03-15] MEDS: Thiamine HCL 100 MG TABLET PO (08:49)
[2025-03-15 08:59] LABS: Alanine Aminotransferase 251 U/L (0-40); Alkaline Phosphatase 85 U/L (39-117); Aspartate Amino Transferase 91 U/L (5-37); Bilirubin Direct 0.3 mg/dL (0.0-0.5); Bilirubin Total 0.5 mg/dL (0.0-1.0); Total Protein 5.9 g/dL (6.5-8.0)
--- NOTE | 2025-03-15 09:43 | MHC.CM.PN ---
DP: PT HAS BEEN MEDICALLY CLEARED FOR DC HOME, NO SERVICES. PT HAS OWN RIDE HOME.
== END 2025-03-15 09:40 | disposition home or self-care (01) | DRG 871 ==
LOC: HO.ED 03-14 03:17 → HO.EDOVER 03-14 03:24 → HO.S3 03-14 13:42
PROVIDERS: Physician Assistant; Admitting Provider Student in an Organized Health Care Education/Training Program; Emergency Provider Emergency Medicine; PCP Internal Medicine; Visit Provider Nurse Practitioner Acute Care
DX: A41.9 Sepsis, unspecified organism (principal); J18.9 Pneumonia, unspecified organism; E87.1 Hypo-osmolality and hyponatremia; E86.1 Hypovolemia; F10.90 Alcohol use, unspecified, uncomplicated; D53.9 Nutritional anemia, unspecified; D69.59 Other secondary thrombocytopenia; Z20.822 Contact with and (suspected) exposure to COVID-19
CPT/HCPCS: 36415; 71046; 80048; 80053; 80076; 80307; 81001; 81003; 82607; 82746; 83540; 83605; 83735; 85007; 85025; 85027; 86140; 87040; 87502; 87635; 93005; 99285; J0456; J0696; J2543; J3371

== ENCOUNTER → 2025-03-13 22:22 | Outpatient (BNV) | payer SELFPAY | PROVIDERS: Admitting Provider Student in an Organized Health Care Education/Training Program; Emergency Provider Emergency Medicine; PCP Internal Medicine; Visit Provider Internal Medicine Cardiovascular Disease | DX: R00.0 Tachycardia, unspecified (principal) | CPT/HCPCS: 93010 ==

== ENCOUNTER → 2025-03-13 23:30 | Outpatient (BNV) | payer SELFPAY | PROVIDERS: Admitting Provider Student in an Organized Health Care Education/Training Program; Emergency Provider Emergency Medicine; Visit Provider General Practice | DX: R91.8 Other nonspecific abnormal finding of lung field (principal) | CPT/HCPCS: 71046 ==

== ENCOUNTER → 2025-03-14 03:17 | Outpatient (BNV) | payer SELFPAY | PROVIDERS: Admitting Provider Student in an Organized Health Care Education/Training Program; Emergency Provider Emergency Medicine; Visit Provider Physician Assistant | DX: A41.9 Sepsis, unspecified organism (principal); J18.9 Pneumonia, unspecified organism; D64.9 Anemia, unspecified; D69.6 Thrombocytopenia, unspecified; E87.1 Hypo-osmolality and hyponatremia; R79.89 Other specified abnormal findings of blood chemistry; F10.90 Alcohol use, unspecified, uncomplicated | CPT/HCPCS: 99223; 99239; 99499 ==